=== PATIENT | male | born 1955 | race Asian ===

== ENCOUNTER 2016-10-14 13:28 | Emergency (ER) | payer SELFPAY ==
[2016-10-14 14:17] LABS: % BASOPHILS 0.4 % (0.0-2.0); % EOSINOPHILS 0.3 % (0.0-5.0); % LYMPHOCYTES 20.1 % (20.0-50.0); % MONOCYTES 9.5 % (2.0-10.0); % NEUTROPHILS 69.7 % (40.0-80.0); HEMATOCRIT 45.8 % (39.0-49.0); HEMOGLOBIN 15.8 gm/dL (13.2-17.3); MEAN CELL VOLUME 90.6 fl (80-99); MEAN CORPUSCULAR HEMOGLOBIN 31.3 pg (26.0-30.0); MEAN CORPUSCULAR HGB CONC 34.5 pg (28.0-36.0); MEAN PLATELET VOLUME 7.8 fl; NEUTROPHILE ABSOLUTE 2.8 Th/cmm (1.8-8.0); PLATELET COUNT 146 Th/cmm (150-400); RED BLOOD COUNT 5.05 Mil/cmm (4.30-5.70); RED CELL DISTRIBUTION WIDTH 11.6 % (11.5-20.0)
[2016-10-14 14:37] LABS: ALB/GLOB RATIO 1.4 (1.0-1.8); ALKALINE PHOSPHATASE 60 U/L (34-104); AMYLASE SERUM 17 U/L (29-103); ANION GAP 13.7 (7.0-16.0); BILIRUBIN,TOTAL 0.7 mg/dL (0.3-1.0); BUN - UREA NITROGEN 12 mg/dL (7-25); BUN/CREATININE RATIO 13.3; CALCIUM SERUM 9.1 mg/dL (8.6-10.3); CHLORIDE 103 mEq/L (98-107); CREATININE - SERUM 0.9 mg/dL (0.7-1.3); GLUCOSE 230 mg/dL (70-105); LIPASE 10 U/L (11-82); POTASSIUM SERUM 3.7 mEq/L (3.5-5.1); SGOT 17 U/L (13-39); SGPT/ALT 15 U/L (7-52); SODIUM SERUM 137 mEq/L (136-145)
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
[2016-10-14] MEDS ORDERED: Sodium Chloride 0.9% 1,000 ML IV ONE (14:54)
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
[2016-10-14] MEDS ORDERED: Sodium Chloride 0.9% 1,000 ML IV SCH (16:45)
--- NOTE | 2016-10-15 09:49 | Diagnostic Imaging Report ---
CHEST X-RAY: AP view INDICATION: Cough COMPARISON: None FINDINGS: Chronic lung changes are seen with no focal consolidation or pleural effusions. Heart size is normal. There is probable minimal atherosclerosis of the aortic arch. The osseous structures are intact. IMPRESSION: Chronic lung changes with no focal consolidation identified.
--- NOTE | 2016-10-15 11:41 | Diagnostic Imaging Report ---
CT cervical spine without IV contrast HISTORY: [facility] COMPARISON: None Technique: Axial images were obtained from the skull base to the upper thoracic spine without IV contrast. Multiplanar reconstructions were made. Total DLP: 349, [id number] FINDINGS: Images of the cervical spine obtained without contrast demonstrate straightening of the cervical lordosis. No evidence of an acute fracture or subluxation. Moderate degenerative changes are seen including mild disc space loss of height at C4/C5. Osteophytic spurring is seen with hypertrophic bony formation greatest at the atlantodental dental articulation. No prevertebral soft tissue swelling. IMPRESSION: No evidence of acute fracture or subluxation. Straightening of the cervical lordosis which may be due to positioning versus muscle spasm Degenerative changes.
== END 2016-10-14 18:51 | disposition home or self-care (01) ==
LOC: ER 13:28
DX: S16.1XXA Strain of muscle, fascia and tendon at neck level, initial encounter (principal); K52.9 Noninfective gastroenteritis and colitis, unspecified; J06.9 Acute upper respiratory infection, unspecified; V49.40XA Driver injured in collision with unspecified motor vehicles in traffic accident, initial encounter; Y93.89 Activity, other specified; Y92.410 Unspecified street and highway as the place of occurrence of the external cause; Y99.8 Other external cause status
CPT/HCPCS: 99285; 70450; 96374; 71010; 72125; 36415; 85025; 82150; 83036; 83690; 80053; J2405; J7030